=== PATIENT | female | born 1970 | race Caucasian/White ===

== ENCOUNTER 2020-08-19 05:16 | Day surgery (SDC) | payer MEDICAID ==
[2020-08-11 11:50] LABS: BASOPHILS # (AUTO) 0.1 X10'3 (0-0.2); BASOPHILS % (AUTO) 1.1 % (0-1); EOSINOPHILS # (AUTO) 0.2 X10'3 (0-0.9); EOSINOPHILS % (AUTO) 2.2 % (0-6); LYMPHOCYTES # (AUTO) 3.2 X10'3 (1.1-4.8); LYMPHOCYTES % (AUTO) 29.6 % (21-51); MEAN CORPUSCULAR HEMOGLOBIN 28.7 PG (27.0-31.0); MEAN CORPUSCULAR HGB CONC 33.3 g/dL (33.0-36.5); MEAN CORPUSCULAR VOLUME 86.3 FL (78-98); MEAN PLATELET VOLUME 8.1 FL (7.4-10.4); MONOCYTES # (AUTO) 0.9 X10'3 (0-0.9); NEUTROPHILS # (AUTO) 6.4 X10'3 (1.8-7.7); NEUTROPHILS % (AUTO) 59.1 % (42-75); PRE OP HEMATOCRIT 42.7 % (35.0-45.0); PRE OP HEMOGLOBIN 14.2 g/dL (12.0-16.0); PRE OP PLATELET COUNT 287 X10'3 (140-440); RED BLOOD COUNT 4.95 X10'6 (4.20-5.60); RED CELL DISTRIBUTION WIDTH 14.8 % (11.5-14.5)
[2020-08-11 12:03] LABS: ALBUMIN 3.4 G/DL (3.4-5.0); ALBUMIN/GLOBULIN RATIO 0.8 (1.1-1.5); ALKALINE PHOSPHATASE 116 IU/L (46-116); BLOOD UREA NITROGEN 14 MG/DL (7-18); BUN/CREATININE RATIO 16.3 (6.6-38.0); CALCIUM 9.3 MG/DL (8.5-10.1); CHLORIDE 106 MMOL/L (99-107); CREATININE 0.86 MG/DL (0.40-0.90); PRE OP ALT 27 U/L (30-65); PRE OP ANION GAP 8 (8-16); PRE OP AST 11 U/L (10-37); PRE OP BILIRUB, TOTAL 0.2 MG/DL (0.0-1.0); PRE OP GLUCOSE 97 MG/DL (70-104); PRE OP POTASSIUM 4.3 MMOL/L (3.4-5.1); PRE OP SODIUM 141 MMOL/L (135-145); TOTAL CARBON DIOXIDE 26.9 MMOL/L (24-32); TOTAL PROTEIN 7.8 G/DL (6.4-8.2); eGFR 69 ML/MIN
[2020-08-11 14:15] LABS: HCG SERUM QL NEGATIVE
[2020-08-19] VITALS (12 sets, daily range): BP systolic 131–194; BP diastolic 71–109
[~2020-08-19] VITALS: Ht 162.6 cm; Wt 98.4 kg
[~2020-08-19 05:16] MED LIST: ALBU90AE2; AMLO5TAB16 PO; IBUP-24 PO; LISI40TA13 PO; OMEP-50 PO; SPIR25TA5 PO; ringers solution, lacted 1,000 ML IV SCH
[2020-08-19] MEDS ORDERED: albuterol 2.5 MG/3 ML nebule NEB ONE (05:30)
[2020-08-19] MEDS ORDERED: vancomycin 1,500 MG in NS 300ml IV soln IV ONE (05:30)
[2020-08-19] MEDS ORDERED: famotidine 20mg tablet PO ONE (05:30)
[2020-08-19] MEDS ORDERED: ceFAZolin 2gm in dextrose, iso 50 ML IV ONE (05:30)
[2020-08-19] MEDS ORDERED: LIDOcaine 1% (10mg/ml) 2ml vial ONE (05:47)
[2020-08-19] MEDS ORDERED: diazepam 5mg tablet PO ONE (07:05)
[2020-08-19] MEDS ORDERED: fentaNYL/PF 50MCG/1 ML 2ML syringe ONE (07:16)
[2020-08-19] MEDS ORDERED: midazolam 1 mg/ML 2ml injection ONE (07:16)
[2020-08-19] MEDS ORDERED: BUPIVAcaine/PF 2.5 mg/ml (0.25%) 30ml vial ONE (07:17)
[2020-08-19] MEDS ORDERED: triamcinolone acetonide 40mg/ml inj ONE (07:17)
[2020-08-19] MEDS ORDERED: propofol inj 20 ML IV ONE (07:28)
[2020-08-19] MEDS ORDERED: LIDOcaine 2% (20mg/ml) 5ml vial ONE (07:28)
[2020-08-19] MEDS ORDERED: labetalol 20mg/4ml (5mg/ml) syringe IV PRN (07:45)
[2020-08-19] MEDS ORDERED: proCHLORperazine 10 MG/2 ml inj IV PRN (07:45)
[2020-08-19] MEDS ORDERED: morphine 2 MG/ML inj. syringe IV PRN (07:45)
[2020-08-19] MEDS ORDERED: ondansetron/PF 4mg/2ml inj IV PRN (07:45)
[2020-08-19] MEDS ORDERED: ketorolac trometh. 30mg/ml inj. IV ONE (07:45)
[2020-08-19] MEDS ORDERED: morphine 4 MG/ML inj SYRINge IV PRN (07:45)
[2020-08-19] MEDS ORDERED: ringers solution, lacted 1,000 ML IV SCH (07:45)
[2020-08-19] MEDS ORDERED: meperidine/PF 25mg/ml syringe IV PRN ×3 (07:45)
[2020-08-19] MEDS ORDERED: acetaminophen 1,000mg/100ml IV 100 ML IV PRN (07:45)
[2020-08-19] MEDS ORDERED: dexamethasone sod phosphate 4mg/ml inj. ONE (07:47)
[2020-08-19] MEDS ORDERED: ondansetron/PF 4mg/2ml inj ONE (07:47)
[2020-08-19] MEDS ORDERED: morphine 10mg/ml inj. ONE (07:48)
--- NOTE | 2020-08-19 08:14 | NUR ---
Received from OR via [facility], accompanied by Anesthesiologist DR KOHLER and report given by Anesthesiologist. PT DROWSY W/ORAL AIRWAY, NO S/S OF DISTRESS/DISCOMFORT. RIGHT KNEE W/BIAS WRAP COVERING INCISION/DRSG, CDI. Addendum: 08/19/20 at 0839 by Becky Olmos RN Amended: Links added.
[2020-08-19] MEDS: hydrALAZINE 20mg/ml inj. IV PRN ×2 (08:27→08:50)
[2020-08-19] MEDS ORDERED: HYDROcodone/acetaminophen 5mg/325mg tablet PO ONE (09:45)
--- NOTE | 2020-08-19 10:14 | NUR ---
PT UP AND ABLE TO AMBULATE SAFELY, VOIDED, PAIN MEDICATION GIVEN FOR RIDE HOME, D/C INSTRUCTIONS GIVEN AND GONE OVER W/PT WHO VERBALIZED UNDERSTANDING. PT D/CD TO PRIVATE VEHICLE VIA W/C W/O INCIDENT. Addendum: 08/19/20 at 1038 by Becky Olmos RN Amended: Links added.
== END 2020-08-19 10:14 | disposition home or self-care (01) ==
LOC: PAS 05:16
PROVIDERS: ATTEND Orthopaedic Surgery
DX: S83.231A Complex tear of medial meniscus, current injury, right knee, initial encounter (principal); S83.281A Other tear of lateral meniscus, current injury, right knee, initial encounter; M94.261 Chondromalacia, right knee; I10 Essential (primary) hypertension; J44.9 Chronic obstructive pulmonary disease, unspecified; F41.9 Anxiety disorder, unspecified; F32.9 Major depressive disorder, single episode, unspecified; M19.011 Primary osteoarthritis, right shoulder; G89.4 Chronic pain syndrome; K21.9 Gastro-esophageal reflux disease without esophagitis; M17.0 Bilateral primary osteoarthritis of knee; F17.210 Nicotine dependence, cigarettes, uncomplicated; E66.01 Morbid (severe) obesity due to excess calories; Z68.37 Body mass index [BMI] 37.0-37.9, adult; Z20.822 Contact with and (suspected) exposure to COVID-19; Z98.890 Other specified postprocedural states; Z79.899 Other long term (current) drug therapy; Z88.2 Allergy status to sulfonamides; Z88.8 Allergy status to other drugs, medicaments and biological substances; X58.XXXA Exposure to other specified factors, initial encounter; Y93.89 Activity, other specified; Y92.89 Other specified places as the place of occurrence of the external cause; Y99.8 Other external cause status
CPT/HCPCS: 29873; 29879; 29880; 36415; 80053; 82948; 84703; 85025; 93005; J0131; J0360; J1100; J1885; J2001; J2175; J2250; J2270; J2405; J2704; J3010; J3301; J3370; J3490; J7040; U0003; A4215; A4618; A6250; A6449; A7000; J7120